=== PATIENT | male | born 1950 | race Caucasian/White ===

== ENCOUNTER 2020-03-19 20:42 | Inpatient (IN) | payer MEDICARE ==
[~2020-03-19] VITALS: Ht 175.3 cm; Wt 84.8 kg
[~2020-03-19 20:42] MED LIST: ADVAIR HFA 230M12 GM INH; ALDACTONE25 MG PO; CHANTIX0.5 MG PO; CHANTIX1 EACH PO; CHANTIX1 MG PO; COLACE100 MG PO; COREG25 MG PO; COZAAR 50 MG TA50 M2 PO; DUONEB 2.5-0.5 M3 ML INH; FLOMAX0.4 MG PO; HYDROCODONE-AP1 EAC6 PO; IBUPROFEN 800800 M1 PO; KLOR-CON 1010 MEQ PO; LASIX 40 MG TAB40 M2 PO; LASIX 40 MG TAB40 MG PO; LEVAQUIN 250 M250 MG PO; LEVAQUIN 500 M500 M2 PO; LISINOPRIL10 MG PO; LISINOPRIL5 MG PO; MEN'S MULTI-VI1 EACH PO; METFORMIN HCL500 MG PO; MUCINEX TA600 MG/TA2 PO; NICOTINE TRANSD21 M1; NICOTINE TRANSD21 M1 TRANSDERM; NORCO 5-325 TA1 EACH PO; PREDNISONE 10 M10 MG PO; PREDNISONE 20 M20 M1 PO; PREDNISONE10 MG PO; PRINIVIL20 MG PO; PROTONIX40 M1 PO; SINGULAIR 10 MG10 MG PO; TRAZODONE HCL100 MG PO; TRAZODONE HCL50 MG PO; TYLENOL325 MG PO; VITAMINS PO
[2020-03-19 20:57] VITALS: BP 116/67
[2020-03-19 21:31] LABS: ABSOLUTE BASOPHILS 0.1 thou/uL (0.0-0.2); ABSOLUTE EOSINOPHILS 0.5 thou/uL (0.0-0.7); ABSOLUTE LYMPHOCYTES 2.1 thou/uL (0.8-5.3); ABSOLUTE NEUTROPHILS 4.9 thou/uL (1.6-8.1); BASOPHILS 1.2 %; EOSINOPHILS 5.7 %; HEMATOCRIT 38.9 % (42.0-52.0); HEMOGLOBIN 12.6 gm/dL (14.0-18.0); LYMPHOCYTES 24.2 %; MCH 28.7 pg (26.0-34.0); MCHC 32.3 g/dL (28.0-37.0); MCV 88.7 fL (80.0-100.0); MONOCYTES 11.9 %; MPV 8.2 fl. (7.2-11.1); NUCLEATED RBCS 0 /100WBC; PLATELET COUNT* 182 thou/uL (150-400); RBC 4.39 mil/uL (4.50-6.00); RDW-CV 15.6 % (10.5-14.5); WBC 8.5 thou/uL (4.0-11.0)
[2020-03-19 21:35] LABS: ANION GAP 9 mmol/L (7-16); BUN 25 mg/dL (7-18); CALCIUM 8.4 mg/dL (8.5-10.1); CHLORIDE 103 mmol/L (98-107); CO2 30 mmol/L (21-32); CREATININE 1.3 mg/dL (0.6-1.3); GLUCOSE 175 mg/dL (70-99); POTASSIUM 3.6 mmol/L (3.5-5.1); SODIUM 142 mmol/L (136-145)
[2020-03-19 21:36] LABS: PROTIME 10.9 Seconds (9.20-11.50)
[2020-03-19 21:40] LABS: ALBUMIN 3.3 g/dL (3.4-5.0); ALKALINE PHOSPHATASE 65 U/L (46-116); LIPASE 210 U/L (73-393); SGOT 19 U/L (15-37); SGPT 22 U/L (30-65); TOTAL BILIRUBIN < 0.1 mg/dL (<0.1-1.0); TOTAL PROTEIN 6.5 g/dL (6.4-8.2)
[2020-03-20 09:45] LABS: ALBUMIN 3.9 g/dL (3.4-5.0); CREATININE 1.1 mg/dL (0.6-1.3); POTASSIUM 4.8 mmol/L (3.5-5.1); TOTAL BILIRUBIN 0.2 mg/dL (<0.1-1.0); TOTAL PROTEIN 7.8 g/dL (6.4-8.2)
[2020-03-20 12:17] VITALS: BP 154/74
--- NOTE | 2020-03-20 14:29 | EKG ---
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: MR : 1950 Requested By: Daniela Chacko Order Number: [id number] Reading MD: Leif Salazar Measurements Intervals [place] Rate: 98 P: 55 NC: 186 QRS: -4 QRSD: 108 T: 100 QT: 367 QTc: 469 Interpretive Statements Sinus rhythm Left atrial enlargement Incomplete left bundle branch block Low voltage, precordial leads Compared to ECG 08/23/2015 02:14:41 Atrial abnormality now present Incomplete left bundle branch block is noted Low QRS voltage now present Left ventricular hypertrophy no longer present Q waves no longer present Prolonged QT interval no longer present Electronically Signed On 03-20-2020 14:29:02 EXT JS DEVELOPER by Leif Salazar [email or web address] <ELECTRONICALLY SIGNED> By: Leif Salazar MD, [facility] 03/20/20 1429 47 47 Leif Salazar MD, [facility] /EPI
[2020-03-20 14:44] VITALS: BP 150/88
[2020-03-20 14:45] VITALS: BP 140/77
[2020-03-20 16:00] VITALS: BP 159/88
[2020-03-20 18:55] LABS: AMP/METHAMP Negative (Negative); BARBITURATES Negative (Negative); BENZODIAZEPINES Negative (Negative); COCAINE Negative (Negative); METHADONE Negative (Negative); OPIATES Negative (Negative); PCP Negative (Negative); THC Negative (Negative)
[2020-03-20 19:40] VITALS: BP 136/75
[2020-03-21] VITALS: BP 147/69
[2020-03-21 04:00] VITALS: BP 165/88
[2020-03-21 04:06] LABS: GLYCOHEMOGLOBIN (HGB A1C) 6.7 % (4.8-5.6)
[2020-03-21 04:17] LABS: ABSOLUTE MONOCYTES 1.1 thou/uL (0.0-1.2); ABSOLUTE NEUTROPHILS 6.5 thou/uL (1.6-8.1); BASOPHILS 0.3 %; EOSINOPHILS 0.3 %; HEMATOCRIT 35.9 % (42.0-52.0); HEMOGLOBIN 11.9 gm/dL (14.0-18.0); LYMPHOCYTES 11.7 %; MCHC 33.1 g/dL (28.0-37.0); MCV 87.8 fL (80.0-100.0); MPV 8.4 fl. (7.2-11.1); NUCLEATED RBCS 0 /100WBC; PLATELET COUNT* 192 thou/uL (150-400); POLYS 74.7 %; RDW-CV 15.9 % (10.5-14.5); WBC 8.7 thou/uL (4.0-11.0)
[2020-03-21 04:27] LABS: CALCIUM 8.5 mg/dL (8.5-10.1); CREATININE 1.4 mg/dL (0.6-1.3); POTASSIUM 4.7 mmol/L (3.5-5.1)
[2020-03-21 04:33] LABS: CHOLESTEROL 178 mg/dL (<200); HDL CHOLESTEROL 41 mg/dL (>40); LDL CHOLESTEROL 115 mg/dL (<100); TC:HDL 4.3 Ratio (Not establshd); TRIGLYCERIDE 114 mg/dL (<150); VLDL 23 mg/dL (<40)
[2020-03-21 04:59] LABS: SERUM ASSESSMENT CLEAR
[2020-03-21 09:00] VITALS: BP 136/70
[2020-03-21 12:00] VITALS: BP 172/87
[2020-03-21 16:39] VITALS: BP 133/72
[2020-03-21 20:00] VITALS: BP 143/74
[2020-03-22] VITALS: BP 120/74
[2020-03-22 04:00] VITALS: BP 128/57
[2020-03-22 08:00] VITALS: BP 89/65
[2020-03-22] MEDS ORDERED: COZAAR 50 MG TA50 M1 PO (11:27)
[2020-03-22] MEDS ORDERED: DOXYCYCLINE 10100 MG PO (11:27)
[2020-03-22] MEDS ORDERED: PREDNISONE10 MG PO (11:27)
[2020-03-22] MEDS ORDERED: COREG25 MG PO (11:27)
[2020-03-22] MEDS ORDERED: PLAVIX 75 MG TA75 M1 PO (11:27)
[2020-03-22 12:00] VITALS: BP 105/55
[2020-03-22 13:46] VITALS: BP 105/55
--- NOTE | 2020-03-24 21:14 | CON ---
[address] [address] CONSULTATION Name: VONDALEROY Room: [address] IN .R.#: [id number] Admission: 03/20/20 Attend Phys: Hemant Paulino MD Discharge: 03/22/20 Date of : 50 Report #: [id number] THIS REPORT FOR: cc: FAM - No family physician/PCP FAM - No family physician/PCP ~ Frantz Mccurdy MD DATE OF SERVICE: 03/20/2020 HISTORY OF PRESENT ILLNESS: This is a 69-year-old male patient who is a very poor historian. 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 I had multiple conversations with Dr. Chacko in the Emergency Room. The patient was evaluated by me for the possibility of stroke. They told me that he was not able to raise his legs up and he was weak in the left arm. His history is complicated that he is weak in the left arm, even in the baseline because of prior surgeries there. I saw him again just a few minutes ago and he thinks he is much improved and on clinical examination he is able to do much more with the left hand than he did before. On my examination, he never had much weakness in both lower extremities. I took his shoes out to do the examination and that may have made the difference. REVIEW OF SYSTEMS: Positive for hypertension, COPD, hepatitis C, chronic back pain, smoking and arthritis. PAST MEDICAL HISTORY: Positive for what looks like significant alcohol intake and hypertension. FAMILY HISTORY: Unremarkable according to the patient. SOCIAL HISTORY: He smokes and drinks alcohol. PHYSICAL EXAMINATION: The patient is a very poorly kept patient. He has a rash and his whole face I am not sure what it is from when I saw him second time is alert, oriented, able to follow simple and complex command. He has no facial palsy. He is able to move his hand much better, but I do not know what his baseline is. His sensation and strength in the lower extremities was intact even before when I saw him. LABORATORY DATA: He did have a CT scan of the head, which does not show any abnormality, but he is not able to cooperate with examination. He has partial preparation for CT angio. IMPRESSION: This patient did not look classical for stroke, but stroke cannot be excluded. He has improved much after giving him some thiamine. His management is difficult. He has a defibrillator, [place] [address] CONSULTATION Name: LEROY FERRARI Jonathan Room: [address]#: [id number] Admission: 03/20/20 Attend Phys: Hemant Paulino MD Discharge: 03/22/20 Date of : 50 Report #: [id number] We cannot do a CT because he says HE IS ALLERGIC TO DYE and he does not want to take that risk. We have pretreated him to some extent and we will fully treat him and then talked to him again tomorrow to see if he wants to do that. Otherwise, I will get a carotid Doppler done. With such a rapidly improving deficits, even if we find intracranial stenosis of any vessels, it is unlikely to change any treatment, so we will put him on aspirin and Plavix for the time being and we will watch him closely and see how he does. More than 50 minutes of time was spent taking care of this patient today and majority was spent counseling and coordinating. <ELECTRONICALLY SIGNED> By: Frantz Mccurdy MD 03/24/20 2114 1338 [id number] Mccurdy MD /nt
--- NOTE | 2020-03-24 21:14 | CON ---
[address] [address] CONSULTATION Name: VONDALEROY Room: [address] IN M.R.#: [id number] Admission: 03/20/20 Attend Phys: Hemant Paulino MD Discharge: 03/22/20 Date of : 50 Report #: [id number] THIS REPORT FOR: cc: FAM - No family physician/PCP FAM - No family physician/PCP ~ Frantz Mccurdy MD DATE OF SERVICE: 03/20/2020 This is a 69-year-old male patient, who was seen by me and this is an interim note. A full note will be dictated later on and full consultation will be done later on. This patient was seen by me for slurred speech, inability to move his both legs properly and a problem with the left hand. He fell from a stool in a bar and his alcohol level was very high. I examined the patient. The patient has no facial palsy. He has surgeries on the left shoulder and he has restricted movements on the left hand. 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 He can move his shoulder or anything with the shoulder; his strength is at his baseline. Right arm is at his baseline. In the leg, he has a normal position sense. He can hold his leg actually for more than 5 seconds and his strength looks unremarkable and he feels about the same. He has a defibrillator, so we could not do an MRI. He HAS ALLERGY TO DYE, so we could not do a CT angio. I discussed the situation with him. I did discuss with him TPA, but his NIH scale is too low and he is improving and he has alcohol and we cannot be even certain that it is a stroke and not radial nerve or brachial plexus palsy, although I gave him the options, but the plan was not to give him TPA, but we will pretreat him and may get a CT angiogram of the head and neck done and he is aware of the fact that he can still get allergic reaction. I will see him later on today and this is only an interim note and the only deficit I saw was in the left arm where he had surgeries in the past and main deficit is in the extension, although he is weak in a generalized fashion, but he has also been weak there even before. Prior studies have recommended giving the TPA to the people even with low NIH scale, but a recent study has passed out on that strategy and the aim is not to give the TPA to the people with low NIH, but we should give an option to him and it was given to him and his decision was to hold any TPA, but we will see him later and evaluate for many thing else. <ELECTRONICALLY SIGNED> By: Frantz Mccurdy MD 03/24/20 2114 0613 [id number] Mccurdy MD /nt
== END 2020-03-22 14:45 | disposition home or self-care (01) | DRG 64 ==
LOC: M.ERS 20:42 → M.TBA-ER 03-20 05:33 → M.2W 03-20 05:33
PROVIDERS: Emergency Medicine; Internal Medicine; ADMIT Internal Medicine; ATTEND Internal Medicine
DX: I63.9 Cerebral infarction, unspecified (principal); G92 Toxic encephalopathy; J44.1 Chronic obstructive pulmonary disease with (acute) exacerbation; F10.129 Alcohol abuse with intoxication, unspecified; L40.9 Psoriasis, unspecified; Z20.822 Contact with and (suspected) exposure to COVID-19; G89.29 Other chronic pain; M54.9 Dorsalgia, unspecified; M19.90 Unspecified osteoarthritis, unspecified site; I11.0 Hypertensive heart disease with heart failure; I50.9 Heart failure, unspecified; M25.559 Pain in unspecified hip; Z96.611 Presence of right artificial shoulder joint; F17.210 Nicotine dependence, cigarettes, uncomplicated; K74.60 Unspecified cirrhosis of liver; E11.9 Type 2 diabetes mellitus without complications; R47.81 Slurred speech; Z86.19 Personal history of other infectious and parasitic diseases; Z91.041 Radiographic dye allergy status; Z28.21 Immunization not carried out because of patient refusal; Z71.6 Tobacco abuse counseling